=== PATIENT | male | born 1970 | race Caucasian/White ===

== ENCOUNTER 2017-03-03 22:51 | Emergency (ER) | payer BC, OTHER ==
[2017-03-03 23:29] VITALS: BP 149/82
[2017-03-03] MEDS ORDERED: DIPH/PERTUSS(ACELL)/TETANUS VAC/PF 0.5 ML SYR (>=10YO) IM ONE (23:45)
--- NOTE | 2017-03-03 23:47 | ER Document Report ---
ED General - General Chief Complaint: Laceration Stated Complaint: FINGER LACERATION Time Seen by Provider: 03/03/17 23:34 Notes: Patient is a 46-year-old male who presents with complaint of pain in his left second digit. She says he was coming fruit and the knife slipped and cut the tip of his finger. Patient says he has some slight numbness to the radial side of the finger. He has no problems with flexion or extension. No other complaints at this time. Is not on blood thinners. TRAVEL OUTSIDE OF THE [place] IN LAST 30 DAYS: No Past Medical History - Social History Smoking Status: Never Smoker Frequency of alcohol use: None Drug Abuse: None Family History: Reviewed & Not Pertinent Patient has suicidal ideation: No Patient has homicidal ideation: No Renal/ Medical History: Denies: Hx Peritoneal Dialysis Review of Systems - Review of Systems Notes: My Normal Review Basic REVIEW OF SYSTEMS: CONSTITUTIONAL : Denies fever, chills, or sweats. Denies recent illness. RESPIRATORY: Denies cough, cold, or chest congestion. Denies shortness of breath, difficulty breathing, or wheezing. GASTROINTESTINAL: Denies abdominal pain. Denies nausea, vomiting, or diarrhea. Denies constipation. MUSCULOSKELETAL: Denies neck or back pain or joint pain or swelling. SKIN: Laceration to tip of left second digit. NEUROLOGICAL: Denies motor loss. ALL OTHER SYSTEMS REVIEWED AND NEGATIVE. Physical Exam - Vital signs Vitals: Temp Pulse Resp BP Pulse Ox 98.1 F 103 H 16 149/82 H 96 03/03/17 23:29 03/03/17 23:29 03/03/17 23:29 03/03/17 23:29 03/03/17 23:29 - Notes Notes: General Appearance: Well nourished, alert, cooperative, no acute distress, no obvious discomfort. Vitals: reviewed, See vital signs table. Extremities: strength 5/5 in all extremities, good pulses in all extremities, patient has a 2 cm laceration over the palmar aspect of the left distal second digit. Patient has good strength with flexion extension of the digit. He has mild numbness to the radial aspect of the digit. Wound does not gape with flexion or extension., no edema. Skin: warm, dry, appropriate color, no rash Neuro: speech clear, oriented x 3, normal affect, responds appropriately to questions. Course - Re-evaluation Re-evalutation: 03/04/17 06:22 Laceration was cleaned with Hibiclens. It was then closed with Dermabond. This gave informed the patient to return to the ER immediately if there is any redness or swelling or signs of infections. Patient agrees with plan and will be discharged home. This gave good skin edge approximation. Dictation of this chart was performed using voice recognition software; therefore, there may be some unintended grammatical errors. - Vital Signs Vital signs: Temp Pulse Resp BP Pulse Ox 98.1 F 103 H 16 149/82 H 96 03/03/17 23:29 03/03/17 23:29 03/03/17 23:29 03/03/17 23:29 03/03/17 23:29 Procedures - Laceration/Wound Repair left 2nd digit of left hand Wound length (cm): 2 Wound's Depth, Shape: Linear Laceration pre-procedure: Shur-Clens applied Wound explored: Clean Wound Repaired With: Dermabond Complications: No Discharge - Discharge Clinical Impression: Laceration Condition: Good Disposition: HOME, SELF-CARE Additional Instructions: Please do not wash the finger for at least 24 hours. Keep it covered when at work. after 24 hours you can gently wash with water. In abour 4 days the glue will start to scab off. Please return to the ER immediately if you have any redness or swelling to the finger. Referrals: CLEO BRICENO MD [Primary Care Provider] - Follow up as needed
== END 2017-03-04 00:04 | disposition home or self-care (01) ==
LOC: ER 22:51
DX: S61.211A Laceration without foreign body of left index finger without damage to nail, initial encounter (principal); W26.0XXA Contact with knife, initial encounter; Y93.G1 Activity, food preparation and clean up; R20.0 Anesthesia of skin
CPT/HCPCS: 90471; 90715; 99282

== ENCOUNTER 2017-06-13 06:27 | Day surgery (SDC) | payer BC ==
[~2017-06-13 06:27] MED LIST: CEFAZOLIN 1 GM/D5W RTU 1 GM/50 ML RTUPB IV PRN
[2017-06-13] MEDS ORDERED: LIDOCAINE 2% INJ (20 MG/ML) 20 ML MDV ONE (07:11)
[2017-06-13] MEDS ORDERED: BUPIVACAINE HCL 0.5 % INJ/PF 30 ML SDV ONE (07:11)
[2017-06-13] MEDS ORDERED: MIDAZOLAM 2 MG/2 ML INJ ONE (07:20)
[2017-06-13] MEDS ORDERED: FENTANYL CITRATE INJ/PF 100 MCG/2 ML AMPUL ONE (07:21)
[2017-06-13] MEDS ORDERED: LIDOCAINE 2% INJ-PF (20 MG/ML) 10 ML AMPUL ONE (07:21)
[2017-06-13] MEDS ORDERED: PROPOFOL INJ 200 MG/20 ML VIAL IV ONE (07:21)
[2017-06-13] MEDS: POLYMYXIN B SULFATE INJ 500000 UNIT VIAL ONE ×2 (09:10)
[2017-06-13] MEDS: BACITRACIN INJ 50,000 UNIT VIAL ONE ×2 (09:10)
[2017-06-13] MEDS: NORMAL SALINE INJ/PF 0.9% 10 ML SDV ONE ×2 (09:10)
[2017-06-13] MEDS: BUPIVACAINE INJ/PF LIPOSOME/PF 266 MG/20 ML SDV ONE ×2 (09:31)
--- NOTE | 2017-06-13 10:54 | SURGICARE OPERATIVE REPORT E ---
[facility], [place] Operative Report NAME: MADISON NIETO AGE: 46Y DATE OF SURGERY: 06/13/2017 ROOM: PREOPERATIVE DIAGNOSIS: Hallux rigidus with degenerative joint disease, left foot. POSTOPERATIVE DIAGNOSIS: Hallux rigidus with degenerative joint disease, left foot. SURGICAL PROCEDURE: Tukcer bunionectomy with insertion of total implant, Silastic implant, left foot. SURGEON: YUSUF MORROW DPM [employer] FORMER: Hayder Davison DPM PROCEDURE: Following induction of IV regional and local anesthesia, the left foot and leg were prepped and draped in the usual sterile manner. The tourniquet was placed around the ankle and inflated to 250 mmHg after exsanguination of the limb via Esmarch bandage. The following surgical procedure was then performed: Tucker bunionectomy with insertion of total Silastic implant, left foot. Attention was directed to the dorsal aspect of the first metatarsophalangeal joint where an approximately 5 cm dorsolinear incision was made. The incision was deepened via sharp dissection. All bleeders were clamped and bovied as necessary for the purposes of hemostasis. A capsular incision was made medial to the extensor hallucis longus tendon and in the same manner as the original skin incision. The capsule was reflected medially and laterally from the bone. This brought into view hypertrophied osteophytes in the dorsal aspect of the first metatarsal head and on the base of the proximal phalanx. Some of these were removed utilizing a rongeur. The ones on the dorsal aspect of the first metatarsal head were removed utilizing a [employer] sagittal saw which was run parallel to the long axis of the bone. All the hypertrophied bone was then removed en toto from the wound. An osteotomy was performed at the base of the proximal phalanx. It was approximately 0.5 cm distal to the joint and it was angled from proximal lateral to distal medial. The ensuing wedge was a [id number] cut and was freed from its soft tissue attachments and removed en toto from the wound. Utilizing a McGlamry elevator, the sesamoids were freed from the dorsoplantar aspect of the first metatarsal head. Another matching wedge of bone was removed from the head of the metatarsal. It was approximately 0.25 cm in width. Another osteotomy was performed at the base of the proximal phalanx. This one was made perpendicular to the bone and was an additional 5 cm in width. It was removed en toto from the wound. It was noted now that the first metatarsophalangeal joint was in a more anatomically correct position. The base of the proximal phalanx and the head of the first metatarsal were then reamed utilizing a combination of a [employer] side-cutting bur and also [place] tree burs. It was determined that a size 4S implant would be needed. Once the correct size was reamed in both the base of the proximal phalanx and the head of the metatarsal to fit the implant, the head of the first metatarsal was rasped smooth utilizing a [employer] crosscut rasp. The area was then flushed with copious amounts of an antibacterial saline solution. The implant was then placed across the joint. It was a 4S Salas Silastic implant with grommets. An x-ray was taken. It was noted that the implant was seated correctly in the first metatarsophalangeal joint within an anatomically correct position. The capsule was then coaptated and maintained utilizing simple interrupted sutures of 3-0 Vicryl. The extensor hallucis longus tendon was then lengthened. This was done by making cuts into the tendon. The cuts were approximately 1 cm apart. One cut would be made from the midline and come out laterally, the next one would be midline to medial, and this was done 5 times. The incision was then infiltrated with 20 mL of Exparel. The subcutaneous tissue was then coaptated and maintained utilizing simple interrupted sutures of 4-0 Vicryl, and the skin was coaptated and maintained utilizing horizontal mattress sutures of 5-0 nylon. A dry sterile dressing was then applied consisting of Janak silk, 4 x 4s, Conform, Kerlix and Coban. The pneumatic tourniquet was released. It was noted that all digits were warm and viable. Patient was transferred to the recovery room. DICTATING PHYSICIAN: YUSUF MORROW D.P.M. [id number] PHY#: [id number] ID: [id number] JOB#: [id number] ACCT: [id number] cc:YUSUF MORROW DPM >
--- NOTE | 2017-06-13 10:55 | SURGICARE DISCHARGE SUMMARY E ---
[facility] Discharge Summary NAME: MADISON NIETO AGE: 46Y ADMITTED: 06/13/2017 DISCHARGED: 06/13/2017 SURGICAL PROCEDURE: Tucker bunionectomy with insertion of total Silastic implant left foot. POSTOPERATIVE DIAGNOSIS: Hallux rigidus with degenerative joint disease left foot. SURGEON: Yusuf Morrow DPM AGRONOMY ADVISOR: Hayder Davison DPM HOSPITAL COURSE: The patient was admitted to [facility] [place] with a chief complaint of a painful first metatarsophalangeal joint. The patient could no longer walk or wear shows without being in pain. The arthritic changes in that first metatarsophalangeal joint had worsened over the past 2 years and he now desired to have this surgically corrected. Patient underwent the above surgical procedure without any complications and was transferred to the recovery room. He was discharged with a surgical shoe, an ice pack, postoperative instructions, and postoperative prescriptions for Percocet 325 mg #60, Phenergan 25 mg #30, cephalexin 500 mg #4. He was given a followup appointment at doctors office in 1 week and the patient was discharged from [facility]. DICTATING PHYSICIAN: YUSUF MORROW D.P.M. [id number] PHY#: [id number] ID: [id number] JOB#: [id number] ACCT: [id number] cc:YUSUF MORROW DPM >
--- NOTE | 2017-06-13 12:53 | RADIOLOGY REPORT (SQ) ---
EXAM DESCRIPTION: NO CHG FLUORO; FOOT LEFT 2 VIEWS COMPLETED DATE/TIME: 06/13/2017 12:33 pm REASON FOR STUDY: LT FOOT GRANDE BUNIONECTOMY M20.22 HALLUX RIGIDUS, LEFT FOOT COMPARISON: None. FLUOROSCOPY TIME: 8 seconds 3 images saved to PACS. TECHNIQUE: Intra-operative images acquired during surgical procedure to evaluate progress. NUMBER OF IMAGES: 3 LIMITATIONS: None. FINDINGS: Three views of the foot, side not labeled. Patient undergoing arthroplasty of the great t oe MP joint. Last image shows grossly anatomic alignment without evidence of fracture. IMPRESSION: IMAGE(S) OBTAINED DURING PROCEDURE. COMMENT: Quality ID [id number]: Final reports for procedures using fluoroscopy that document radiation exp osure indices, or exposure time and number of fluorographic images (if radiation exposure indices are not available) Please consult full operative report of the attending physician for description of the procedure. TECHNICAL DOCUMENTATION: JOB ID: [id number] [employer]- All Rights Reserved
== END 2017-06-13 10:58 | disposition home or self-care (01) ==
LOC: SC 06:27
PROVIDERS: ATTEND Podiatrist Foot Surgery
PROC: 0QBN0ZZ Excision of Right Metatarsal, Open Approach (ICD-10-PCS; principal; 2017-06-13 07:30)
DX: M20.22 Hallux rigidus, left foot (principal); K21.9 Gastro-esophageal reflux disease without esophagitis; M19.072 Primary osteoarthritis, left ankle and foot; Z79.899 Other long term (current) drug therapy
CPT/HCPCS: 28292; 73620; J2250; J3490 ×5; J0690; J3010; J2704; C9290; 01480